=== PATIENT | male | born 1995 | race Caucasian/White ===

== ENCOUNTER 2020-05-08 16:52 | Outpatient (REF) | payer OTHER, SELFPAY ==
[2020-05-08 17:30] LABS: Hematocrit 40.9 % (42-52); Hemoglobin 13.8 g/dl (14.0-18.0); Mean Corpuscular HGB Conc 33.7 g/dl (31.0-36.0); Mean Corpuscular Hemoglobin 29.8 pg (27.0-33.0); Mean Corpuscular Volume 88.3 fL (80-98); Mean Platelet Volume 11.5 fL (9.4-12.4); Platelet Count 257 X10*3/uL (160-400); Red Blood Count 4.63 X10*6/uL (4.60-5.80); Red Cell Distribution Width 11.9 % (11.0-16.0)
[2020-05-08 17:33] LABS: Glucose Urine UA NEG (NEG); Leukocyte Esterase Urine NEG (NEG); Nitrite Urine NEG (NEG); PH 7.5 (5.0-8.0); Specific Gravity - Urine 1.025 (1.005-1.025); Urine Blood NEG (NEG); Urine Ketones NEG (NEG); Urine Protein NEG (NEG-TRACE)
[2020-05-08 17:34] LABS: Appearance Urine CLEAR; Color Urine YELLOW
[2020-05-08 17:53] LABS: Alanine Aminotransferase 10 U/L (0-40); Albumin Level 4.9 g/dL (3.5-5.0); Alkaline Phosphatase 62 U/L (39-117); Anion Gap 12 (12-20); Aspartate Amino Transferase 15 U/L (5-37); Bilirubin Direct 0.3 mg/dL (0.0-0.5); Bilirubin Total 0.8 mg/dL (0.0-1.0); Blood Urea Nitrogen 10 mg/dL (9-16); Calcium 9.2 mg/dL (8.4-10.2); Carbon Dioxide 28 mmol/L (22-29); Chloride 103 mmol/L (96-108); Cholesterol 136 mg/dL; Estimated Glomerular Filt Rate > 60; Glucose Random 98 mg/dL (60-115); HDL Cholesterol 51 mg/dL; LDL Cholesterol Calculated 69 mg/dl; Potassium 4.2 mmol/L (3.3-5.1); Sodium 139 mmol/L (135-145); Total Protein 7.7 g/dL (6.5-8.0); Triglycerides 81 mg/dL
[2020-05-08 18:17] LABS: Thyroid Stimulating Hormone 1.15 uIU/mL (0.32-4.0)
== END 2020-05-08 16:53 | disposition home or self-care (01) ==
LOC: HO.LAB 16:52
PROVIDERS: Visit Provider Internal Medicine
DX: Z00.00 Encounter for general adult medical examination without abnormal findings (principal); Z13.220 Encounter for screening for lipoid disorders; Z13.29 Encounter for screening for other suspected endocrine disorder
CPT/HCPCS: 36415; 80048; 80061; 80076; 81003; 84443; 85027

== ENCOUNTER 2024-09-22 10:47 | Outpatient (AMB) | payer OTHER, SELFPAY ==
--- NOTE | 2024-09-22 10:50 | MHC.PC.OV ---
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 Accompanied by: Self / Same As Patient Allergies No Known Allergies Allergy (Verified 09/22/24 11:09) Medication List - Last Reconciled 09/22/24 by Nelda Martinez PA-C No Known Home Meds Tobacco use date assessed: 09/22/24 Dental Screening Dental Screen Date: 09/22/24 Did you have a dental visit in the last 12 months?: Yes Did you have a dental problem in the last 6 months where you did not have access to dental care?: No Was dental information given to patient?: Patient has dentist HPI Establish Care HPI Details The patient is a 29-year-old male presenting for a new patient appointment, annual physical evaluation and evaluation of back and neck pain. The back pain has been ongoing for approximately three months without any inciting trauma or falls. The patient denies any associated symptoms such as black or bloody stools, unintentional weight loss, or urinary incontinence. The neck pain is similarly chronic, with the patient noting discomfort primarily upon waking. There is no numbness or tingling reported in the extremities, and the patient has not experienced any significant changes in mobility. The patient has a family history of Type 2 Diabetes Mellitus but reports no personal history of diabetes, hypertension, or hyperlipidemia. He denies any recent hospitalizations or emergency room visits. Social History - Employment: Works in [employer], involving physical labor and climbing. [facility] Medical History Preventative health care Neck pain Back pain Establishing care with new doctor, encounter for Surgical History No history of previous surgery Family History Mother Cancer Father Cancer Social History Housing: Apartment Alcohol intake: current Alcohol intake frequency: holidays/special occasions only Patient Tobacco Use Status: Never used Tobacco service: No Current occupational status: employed Cognitive needs: No Hearing needs: No Vision needs: Yes (rx glasses) Questionnaire PHQ-9 Over the last 2 weeks, how often have you been bothered by any of the following problems? 1. Little interest or pleasure in doing things: not at all 2. Feeling down, depressed, or hopeless: not at all 3. Trouble falling or staying asleep, or sleeping too much: not at all 4. Feeling tired or having little energy: not at all 5. Poor appetite or overeating: not at all 6. Feeling bad about yourself - or that you are a failure or have let yourself or your family down: not at all 7. Trouble concentrating on things, such as reading the newspaper or watching television: not at all 8. Moving or speaking so slowly that other people could have noticed. Or the opposite - being so fidgety or restless that you have been moving around a lot more than usual: not at all 9. Thoughts that you would be better off or of hurting yourself in some way: not at all Total score: 0 Depression Screening Interpretation: Negative Depression Screening Done: Yes 80465 - PHQ-9 Billing: Yes Source: Developed by Drs. Kar Delgado, Britt Hurley, Ronaldo Borges and colleagues, with an educational alanis from [employer]. Thrive Questionnaire Date Thrive assessed: 09/22/24 I am a: Patient What is your living situation today?: I have a steady place to live Within the past 12 months, did the food you bought not last and you didn't have the money to get more?: Never true Within the past 12 months, did you worry whether your food would run out before you got money to buy more?: Never true Do you have trouble paying for medicines?: No Do you have trouble getting transportation to medical appointments?: No Do you have trouble paying your heating and electricity bill?: No Do you have trouble taking care of your child, family member or friend?: No Do you have trouble with day-to-day activities such as bathing, preparing meals, shopping, managing finances, etc.?: No Are you currently unemployed and looking for a job?: No Are you interested in more education?: No Please select the resources that you would like help with: None Currently or been in a relationship where the following occur: No concerns reported THRIVE Score: 0 AUDIT C Alcohol Use Questionnaire (AUDIT-C) 1. How often do you have a drink containing alcohol?: Monthly or less 2. How many drinks containing alcohol do you have on a typical day when you are drinking?: 1 or 2 3. How often do you have six or more drinks on one occasion?: Never Total Score: 1 Score Reviewed/Action Taken: No JUNE-7 AMB Questionnaire JUNE-7 Date JUNE - 7 assessed: 09/22/24 Feeling nervous, anxious, or on edge: 0 = Not at all Not being able to stop or control worryin = Not at all Worrying too much about different things: 0 = Not at all Trouble relaxin = Not at all Being so restless that it is hard to sit still: 0 = Not at all Becoming easily annoyed or irritable: 0 = Not at all Feeling afraid as if something awful might happen: 0 = Not at all Total JUNE-7 score (0-4 normal; 5-9 mild; 10-14 moderate; 15-21 severe): 0 Source: Developed by Drs. Kar Delgado, Britt Hurley, Ronaldo Borges and colleagues, with an educational alanis from [employer]. JUNE-7 Assessment Billing JUNE-7 Assessment Tool: JUNE-7 Assessment 66112 Review of Systems Const Details: - Musculoskeletal: Reports back and neck pain for three months. Denies numbness or tingling in extremities. - Gastrointestinal: Denies black or bloody stools, unintentional weight loss. - Genitourinary: Denies urinary incontinence or retention. - Endocrine: Denies symptoms of diabetes such as polyuria or polydipsia. Physical exam (Primary Care) Vital Signs: Last Vital Signs Temp 99.9 F 09/22/24 10:58 Pulse 57 09/22/24 10:58 Resp 16 09/22/24 10:58 BP 116/68 09/22/24 10:58 Pulse Ox 99 09/22/24 10:58 Oxygen Delivery Method Room Air 09/22/24 10:58 Care Plan Goal for BP management: <140/90 at Goal BMI result Body Mass Index 18.8 Normal BMI Tobacco/Smoking Status: Tobacco use Status Tobacco use date assessed 09/22/24 09/22/24 10:57 Patient Tobacco Use Status Never used Tobacco 09/22/24 11:04 PHQ-9: PHQ-9 Score PHQ-9: Total score 0 09/22/24 10:57 Depression Screening Interpretation: Negative Thrive Assessment: Date of Thrive Assessment Date Thrive assessed 09/22/24 09/22/24 10:57 Currently or been in a relationship where the following occur: No concerns reported Const Other: Appearance: Alert. Oriented X3. No acute distress. Head: Normal external exam. Normocephalic. Atraumatic. Eyes: Pupils are equal, round, and reactive to light. Extraocular movements intact. Conjunctiva and sclera normal. Eyelids normal. Ears: External auditory canal normal. Tympanic membranes normal. Throat: Pharynx normal. Uvula midline. Moist mucous membranes. Neck: Normal inspection. Neck supple. Full range of motion. No adenopathy. Thyroid Normal. No meningeal signs. No neck mass noted. Reports neck pain for three months. Cardiovascular: Normal heart rate and rhythm. Heart sound normal. No murmurs noted. Pulses normal throughout. Respiratory: No respiratory distress. Painless inspiration. Breath sounds normal. No wheezes/rales/rhonchi noted. Chest nontender. No accessory muscle usage noted or decreased air movement noted. Abdomen: Soft and nontender. Bowel sounds normal in all 4 quadrants. No distention noted. No organomegaly noted. No visible injury noted. Back: No costovertebral angle tenderness. Full range of motion noted. Reports back pain/neck pain for three months that has intermittent most likely muscular in nature. There is no mid cervical/thoracic or lumbar tenderness. No step-offs or deformities are noted. Patient has a normal steady gait. Patient neuro intact bilaterally and distally in all 4 extremities. No rashes/lesions at induration without fluctuance or signs of infection noted.. Skin: Skin warm and dry. Normal skin color. Normal skin turgor. No rashes/lesions/lacerations noted. Extremities: No lower extremity edema. Extremities exhibit normal range of motion. Extremities nontender. Neuro: Oriented X 3. No motor deficit. No sensory deficit. Reflexes normal. Coding Level of Care Code New Pt Level 5 (70923) New Pt Prev Care 18-39yr(91927 Diagnoses Establishing care with new doctor, encounter for Z76.89 Annual physical exam Z00.00 Back pain M54.9 Neck pain M54.2 Preventative health care Z00.00 Additional Codes PHQ-9 - 41355 - PHQ-9 Billing: Yes ([id number]) JUNE-7 Assessment Billing - JUNE-7 Assessment Tool: JUNE-7 Assessment 36764 ([id number]) Assessment & Plan Assessment & Plan (1) Establishing care with new doctor, encounter for: Code(s): Z76.89 - Persons encountering health services in other specified circumstances Category: Medical (2) Annual physical exam: Code(s): Z00.00 - Encounter for general adult medical examination without abnormal findings Category: Medical (3) Back pain: Code(s): M54.9 - Dorsalgia, unspecified Category: Medical Plan: The plan includes obtaining imaging studies of the back to assess for any structural abnormalities such as arthritis or disc issues. Blood work will be conducted to rule out any underlying systemic causes. The patient was advised to monitor for any new symptoms such as urinary incontinence or numbness, which would necessitate immediate medical attention. (4) Neck pain: Code(s): M54.2 - Cervicalgia Category: Medical Plan: Imaging studies of the neck will be performed to evaluate for potential arthritis or other structural issues. The patient was offered physical therapy as a treatment option but declined due to time constraints. The patient was instructed to report any worsening symptoms or new neurological deficits. (5) Preventative health care: Code(s): Z00.00 - Encounter for general adult medical examination without abnormal findings Category: Medical Plan: Routine blood work will be conducted to assess general health, including screening for diabetes, cholesterol levels, and vitamin deficiencies. A prostate-specific antigen (PSA) test will be performed as part of cancer screening. The patient was advised to return for follow-up in one year unless new symptoms arise. Plan Plan Patient was informed and verbally consented to the use of an ambient scribe for clinic note documentation during this visit. 1. Back Pain The plan includes obtaining imaging studies of the back to assess for any structural abnormalities such as arthritis or disc issues. Blood work will be conducted to rule out any underlying systemic causes. The patient was advised to monitor for any new symptoms such as urinary incontinence or numbness, which would necessitate immediate medical attention. 2. Neck Pain Imaging studies of the neck will be performed to evaluate for potential arthritis or other structural issues. The patient was offered physical therapy as a treatment option but declined due to time constraints. The patient was instructed to report any worsening symptoms or new neurological deficits. 3. Preventative Care Routine blood work will be conducted to assess general health, including screening for diabetes, cholesterol levels, and vitamin deficiencies. A prostate-specific antigen (PSA) test will be performed as part of cancer screening. The patient was advised to return for follow-up in one year unless new symptoms arise. During the visit, I discussed the importance of obtaining imaging studies for the back and neck to evaluate for structural issues. We also talked about the need for routine blood work to screen for diabetes, cholesterol, and vitamin deficiencies. I explained the PSA test as part of cancer screening and advised the patient to monitor for any new symptoms that would require immediate attention. Follow-up was recommended in one year unless new symptoms develop. Orders: Orders C Reactive Protein Today Z00.00 - Encounter for general adult medical examination without abnormal findings Vitamin B12 and Folate Today Z00.00 - Encounter for general adult medical examination without abnormal findings Magnesium Today Z00.00 - Encounter for general adult medical examination without abnormal findings Complete Blood Count Auto Diff Today Z00.00 - Encounter for general adult medical examination without abnormal findings XR thoracic spine 3V Today M54.2 - Cervicalgia, M54.9 - Dorsalgia, unspecified XR lumbar spine 4V min Today M54.2 - Cervicalgia, M54.9 - Dorsalgia, unspecified Vitamin D 25-OH Total Today Z00.00 - Encounter for general adult medical examination without abnormal findings Liver Panel Today Z00.00 - Encounter for general adult medical examination without abnormal findings Lipid Panel Today Z00.00 - Encounter for general adult medical examination without abnormal findings Hemoglobin A1c Today Z00.00 - Encounter for general adult medical examination without abnormal findings PSA,Total (Free>4and<10) Today Z00.00 - Encounter for general adult medical examination without abnormal findings TSH reflex Free T4 Today Z00.00 - Encounter for general adult medical examination without abnormal findings Comprehensive [place]. Panel Fast Today Z00.00 - Encounter for general adult medical examination without abnormal findings XR cervical spine 5V Today M54.2 - Cervicalgia, M54.9 - Dorsalgia, unspecified Patient Instructions: - Schedule imaging studies for back and neck as discussed. - Complete fasting blood work as instructed. - Monitor for new symptoms such as urinary incontinence or numbness and seek immediate care if they occur. - Return for follow-up in one year unless new symptoms arise.
[2024-09-22 10:58] VITALS: BP 116/68; PULSE 57; RESP 16; TEMP 37.7; O2SAT 99; BMI 18.8
--- OUTSIDE RECORDS SUMMARY | 2024-09-22 11:26 | XMS_ITS | Encounter Summary ---
Author Organization [facility] Address [address] [place] [id number] Phone Care Team Providers Care Automatic Blocker Name Role Phone Keri Pennington MD Primary Care Provider Unavailabl e Encounter Details Date Type Department Care Team (Late st Contact Info) Description 07/26/2017 Conversion Encounter [facility] [address] [address] Linda Molina MD [address] [place] [id number] Social History Tobacco Use Types Packs/Day Years Used Date Smoking Tobacco: Never Assessed Sex and Gender Information Value Date Recorded Sex Assigned at Not on file Legal Sex Male 6:20 PM EDT Gender Identity Not on file Sexual Orientation Not on file documented as of this encounter Plan of Treatment Not on file documented as of this encounter Visit Diagnoses Not on filedocumented in this encounter Care Teams Automatic Blocker Relationship Specialty Start Date End Date Keri Pennington MD PCP - General 08/25/19 documented as of this encounter
== END 2024-09-22 11:24 | disposition home or self-care (01) ==
PROVIDERS: PCP Internal Medicine; Visit Provider Physician Assistant Medical
DX: Z00.00 Encounter for general adult medical examination without abnormal findings (principal); M54.9 Dorsalgia, unspecified; M54.2 Cervicalgia

== ENCOUNTER → 2024-09-22 10:47 | Outpatient (BNVA) | payer OTHER, SELFPAY | PROVIDERS: PCP Internal Medicine; Visit Provider Physician Assistant Medical | DX: Z00.00 Encounter for general adult medical examination without abnormal findings (principal); M54.9 Dorsalgia, unspecified; M54.2 Cervicalgia; Z76.89 Persons encountering health services in other specified circumstances | CPT/HCPCS: 96127; 99202; 99385 ==